=== PATIENT | female | born 1955 | race American Indian/Alaskan Native ===

== ENCOUNTER 2017-09-16 20:37 | Emergency (ER) | payer MEDICAID ==
[2017-09-16 20:53] VITALS: BP 149/92
[2017-09-16] MEDS ORDERED: MOTRIN PO ONE (21:14)
--- NOTE | 2017-09-16 23:09 | XRay Report ---
FINAL REPORT EXAM: XR SPINE LUMBOSACRAL 2-3V HISTORY: lower back pain TECHNIQUE: AP, lateral and coned-down views of the lumbar spine PRIORS: None. FINDINGS: The vertebral body heights are well maintained. Severe disc space narrowing at L4-L5 and moderate narrowing L5-S1 is seen. Spurring anteriorly posteriorly is present from L3 through S1. There is a subtle anterolisthesis of L4 on L5. The alignment is otherwise normal. No evidence for spondylolysis is seen. Pedicles are intact bilaterally at all levels. The paraspinal soft tissues are unremarkable. In the midline pelvis, several rounded areas of calcification probably represent fibroids in the uterus. These are not associated with the rectosigmoid colon on the lateral film. IMPRESSION: Severe disc space narrowing L4-L5 and moderate narrowing L5-S1. A subtle, grade 1 anterolisthesis of L4 on L5 is seen.
--- NOTE | 2017-09-16 23:31 | Emergency Department Report ---
ED Back Pain/Injury HPI - General Chief Complaint: Back Pain/Injury Stated Complaint: FALL / BACK PAIN Time Seen by Provider: 09/16/17 23:18 Source: patient Limitations: No Limitations - History of Present Illness Initial Comments: 62-year-old -Indian female comes to the emergency room complaining of back pain after she tripped and fell over laundry detergent yesterday in the washroom around 5:00. That was on Thursday. Today she comes in for lower back pain. Patient reports a past medical history seizures and hypertension A. fib and chest pain. She admits to some dysuria. She denies any bowel or urine incontinence. She denies any radiation down the legs or up the back. She reports that she had a fall at home last months and on Thursday she had a fall at the laundromat. Patient denies any loss of consciousness no head injury no nausea no vomiting no fever no chills. Complaint: back injury -: days(s) (2) Similar Symptoms Previously: No Place: other (laundry mat) Radiation: none Severity scale (0 -10): 10 Quality: sharp, crushing Consistency: constant Improves With: none Worsens With: movement, walking Context: fall Associated Symptoms: denies other symptoms - Related Data Home Medications Medication Instructions Recorded Confirmed Last Taken Furosemide [Lasix TAB] 40 mg PO QDAY 03/24/15 03/24/15 03/23/15 1 Oxycodone HCl/Acetaminophen 1 each PO DAILY 03/24/15 03/24/15 03/23/15 [Percocet 7.5/325 mg] 1 Warfarin [Coumadin] 2.5 mg PO QDAY 03/24/15 03/24/15 03/23/15 1 Previous Rx's Medication Instructions Recorded Last Taken Type Aspirin [Aspirin BABY CHEW TAB] 81 mg PO QDAY #30 tab.chew 03/26/15 Unknown Rx Hydrochlorothiazide [HCTZ] 25 mg PO QDAY #30 tablet 03/26/15 Unknown Rx cloNIDine [Catapres] 0.2 mg PO DAILY #30 tablet 03/26/15 Unknown Rx Ibuprofen 800 mg PO Q8H PRN #15 tablet 09/17/17 Unknown Rx traMADol [Ultram 50 MG tab] 50 mg PO Q4HR PRN #20 tablet 09/17/17 Unknown Rx Allergies Allergy/AdvReac Type Severity Reaction Status Date / Time Penicillins Allergy Unknown Verified 03/24/15 03:32 ED Review of Systems ROS: Stated complaint: FALL / BACK PAIN Other details as noted in HPI ED Past Medical Hx - Past Medical History Hx Hypertension: Yes Hx Heart Attack/AMI: (PACEMAKER) Hx Congestive Heart Failure: Yes Hx Diabetes: Yes Hx Asthma: Yes - Surgical History Additional Surgical History: PACEMAKER - Social History Smoking Status: Never Smoker Substance Use Type: None - Medications Home Medications: Home Medications Medication Instructions Recorded Confirmed Last Taken Type Furosemide [Lasix TAB] 40 mg PO QDAY 03/24/15 03/24/15 03/23/15 History 1 Oxycodone HCl/Acetaminophen 1 each PO DAILY 03/24/15 03/24/15 03/23/15 History [Percocet 7.5/325 mg] 1 Warfarin [Coumadin] 2.5 mg PO QDAY 03/24/15 03/24/15 03/23/15 History 1 Aspirin [Aspirin BABY CHEW TAB] 81 mg PO QDAY #30 tab.chew 03/26/15 Unknown Rx Hydrochlorothiazide [HCTZ] 25 mg PO QDAY #30 tablet 03/26/15 Unknown Rx cloNIDine [Catapres] 0.2 mg PO DAILY #30 tablet 03/26/15 Unknown Rx Ibuprofen 800 mg PO Q8H PRN #15 tablet 09/17/17 Unknown Rx traMADol [Ultram 50 MG tab] 50 mg PO Q4HR PRN #20 tablet 09/17/17 Unknown Rx ED Physical Exam - General Limitations: No Limitations General appearance: alert, in no apparent distress - Head Head exam: Present: atraumatic, normocephalic - Eye Eye exam: Present: normal appearance - ENT ENT exam: Present: mucous membranes moist - Neck Neck exam: Present: normal inspection - Respiratory Respiratory exam: Present: normal lung sounds bilaterally. Absent: respiratory distress - Cardiovascular Cardiovascular Exam: Present: regular rate, normal rhythm. Absent: systolic murmur, diastolic murmur, rubs, gallop - GI/Abdominal GI/Abdominal exam: Present: soft, normal bowel sounds - Extremities Exam Extremities exam: Present: normal inspection - Back Exam Back exam: Present: normal inspection, tenderness (bilateral sacral notch), paraspinal tenderness. Absent: muscle spasm, vertebral tenderness - Neurological Exam Neurological exam: Present: alert, oriented X3 - Psychiatric Psychiatric exam: Present: normal affect, normal mood - Skin Skin exam: Present: warm, dry, intact, normal color. Absent: rash ED Course Vital Signs 09/16/17 09/16/17 20:48 21:05 Temperature 97.9 F 97.9 F Pulse Rate 67 67 Respiratory 16 16 Rate Blood Pressure 149/92 149/92 O2 Sat by Pulse 99 100 Oximetry ED Medical Decision Making - Radiology Data Radiology results: report reviewed, image reviewed FINDINGS: The vertebral body heights are well maintained. Severe disc space narrowing at L4-L5 and moderate narrowing L5-S1 is seen. Spurring anteriorly posteriorly is present from L3 through S1. There is a subtle anterolisthesis of L4 on L5. The alignment is otherwise normal. No evidence for spondylolysis is seen. Pedicles are intact bilaterally at all levels. The paraspinal soft tissues are unremarkable. In the midline pelvis, several rounded areas of calcification probably represent fibroids in the uterus. These are not associated with the rectosigmoid colon on the lateral film. IMPRESSION: Severe disc space narrowing L4-L5 and moderate narrowing L5-S1. A subtle, grade 1 anterolisthesis of L4 on L5 is seen. Transcribed By: [facility] Dictated By: MILLY BARRIOS MD Electronically Authenticated By: MILLY BARRIOS MD Signed Date/Time: 09/16/172303 DD/ 03 TD/TT: 09/16/172303 - Medical Decision Making Patient's been evaluated by this provider [facility]. X-ray of back was done which showed severe disc narrowing L4-L5 and moderate narrowing of L5 S1 except tell, grade 1 anterolisthesis of the L4 on L5 is seen. This appears to be chronic findings. Discussed the patient she can take ibuprofen for pain management continue with her Ultram that she has at home. Follow with orthopedics if symptoms persist or gets worse. Critical care attestation.: If time is entered above; I have spent that time in minutes in the direct care of this critically ill patient, excluding procedure time. ED Disposition Clinical Impression: Back pain at L4-L5 level Disposition: -01 TO HOME OR SELFCARE Is pt being admited?: No Does the pt Need Aspirin: No Condition: Stable Instructions: Back Pain (ED), Arthralgia (ED) Additional Instructions: Take pain medication as prescribed. Follow up with her primary care provider or orthopedist. I will list of orthopedists below. Prescriptions: Ibuprofen 800 mg PO Q8H PRN #15 tablet PRN Reason: Pain traMADol [Ultram 50 MG tab] 50 mg PO Q4HR PRN #20 tablet PRN Reason: Pain Referrals: LIANNE DE LA O MD [Primary Care Provider] - 3-5 Days SHANTEL HARRIS MD [Staff Physician] - 3-5 Days [facility] [Outside] - 3-5 Days
[2017-09-17 00:06] LABS: Bacteria,Urine 1+ /HPF (Negative); Bilirubin,Urine NEG (Negative); Blood,Urine NEG (Negative); Color,Urine Yellow (Yellow); Mucus,Urine FEW /HPF; Urobilinogen,Urine < 2.0 mg/dL (<2.0)
== END 2017-09-17 01:20 | disposition home or self-care (01) ==
LOC: ED 20:37
DX: M54.5 Low back pain (principal); I11.0 Hypertensive heart disease with heart failure; I50.9 Heart failure, unspecified; E11.9 Type 2 diabetes mellitus without complications; J45.909 Unspecified asthma, uncomplicated; Z88.0 Allergy status to penicillin; Z79.82 Long term (current) use of aspirin
CPT/HCPCS: 72100; 81001; 99284